=== PATIENT | male | born 1945 | race Caucasian/White ===

== ENCOUNTER → 2023-12-05 13:23 | Outpatient (REF) | payer OTHER, SELFPAY | LOC: HWRAD 13:23 | PROVIDERS: ATTENDING PHYSICIAN Family Medicine Sports Medicine | DX: S83.242A Other tear of medial meniscus, current injury, left knee, initial encounter (principal) | CPT/HCPCS: 73564 ==

== ENCOUNTER 2024-02-05 06:19 | Day surgery (SDC) | payer OTHER, SELFPAY ==
[2024-01-22 08:53] VITALS: BMI 22.8
[2024-01-22 09:46] LABS: Hematocrit 42.9 % (39.0-52.0); Mean Corp Hgb Conc. 32.6 g/dL (33.0-37.0); Mean Corpuscular Hgb 31.4 pg (27.0-31.0); Mean Corpuscular Volume 96.2 fL (80.0-94.0); Mean Platelet Volume 9.9 fL (7.4-10.4); Platelet Count 246 10^3/uL (130-400); Red Blood Cell Count 4.46 10^6/uL (4.70-6.10); Red Cell Dist. Width 13.4 % (11.5-14.5); White Blood Cell Count 6.1 10^3/uL (4.8-10.8)
[2024-01-22 12:24] LABS: Blood Urea Nitrogen 22 mg/dl (9-20); Calcium 9.2 mg/dl (8.4-10.2); Carbon Dioxide 27 mmol/L (22-30); Chloride 108 mmol/L (98-107); Estimated Creatinine Clearance 64 ml/min; Glucose 91 mg/dl (70-99); Potassium 4.7 mmol/L (3.5-5.1); Sodium 138 mmol/L (135-145); eGFR > 60.00
--- NOTE | 2024-01-23 13:05 | PTCARENOTE ---
Patients 01/21 EKG abnormal- reviewed by Dr. Shi no additional interventions required.
[2024-02-05] VITALS (9 sets, daily range): BP systolic 116–161; BP diastolic 54–106; BMI 22.8
[2024-02-05 06:48] LABS: Glucose - Point of Care 100 mg/dl (70-99)
[2024-02-05] MEDS: TYLENOL 1000 MG PO (06:52)
[2024-02-05] MEDS: NORMOSOL-R 1000 IV (06:54)
[2024-02-05] MEDS: DILAUDID 0.25 MG IV (10:10)
[2024-02-05 10:22] LABS: Glucose - Point of Care 113 mg/dl (70-99)
[2024-02-05] MEDS: MOTRIN 600 MG PO (11:07)
== END 2024-02-05 12:20 | disposition home or self-care (01) ==
LOC: SDS 06:19
PROVIDERS: ATTENDING PHYSICIAN Surgery; FAMILY PHYSICIAN Family Medicine Sports Medicine
DX: K40.90 Unilateral inguinal hernia, without obstruction or gangrene, not specified as recurrent (principal)
CPT/HCPCS: 49505; 36415; 80048; 82962; 85027; 93005; C1781